=== PATIENT | female | born 1945 | race Caucasian/White ===

== ENCOUNTER → 2016-02-25 | Outpatient (CLI) | payer OTHER ==
[~2016-02-25] MED LIST: IOPAMIDOL (ISOVUE-300) 50 ML VIAL IV ONE
--- NOTE | 2016-02-25 18:55 | CT ---
Unenhanced and Contrast-Enhanced CT Imaging of the Abdomen and Pelvis with CT Urography Clinical History: 70-year-old female with hematuria and recurrent urinary tract infections. 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 ICD 10 Diagnostic Code: Are 31.9. Technique: Oral contrast was not administered. A multidetector unenhanced helical CT scan of the abdo men and pelvis was initially obtained. The patient reportedly has an IV contrast ALLERGY and had been premedicated with Benadryl and prednisone beforehand. She received 100 mL of IV Isovue-300 without c omplication, and a multidetector CT scan of the abdomen was acquired during the portal venous phase ( 2 minute delay), and then 10 minute delayed excretory phase "urography" imaging of the abdomen and pe lvis was obtained. Images are reformatted at 5.00, 2.50, and 1.25 mm increments, and multiplanar levi nstructions are reviewed on the workstation. The DFOV is 38.5-42.0 cm. A dose reduction protocol was used. Comparison Study: CT scan of the abdomen and pelvis, dated July 17, 2015. Findings: UNENHANCED CT SCAN OF THE ABDOMEN AND PELVIS: There are some mild dependent changes seen at the lung bases. There is some scarring seen inferolaterally in the lingula. There is no pleural or pericardial effusion. There are no hepatic, pancreatic, splenic, adrenal, renal, ureteral, or urinary bladder ca lculi. Some phleboliths are seen in the left hemipelvis, and are stable. There is atherosclerotic deirdre cification of the abdominal aorta. There is an old mild superior cortical endplate compression fractu re at L1 (which has developed since June 2015), with some subchondral sclerosis. There is advanced deg enerative disk disease at T10-T11, T11-T12, T12-L1, L2-L3, and L5-S1, and there is mild retrolisthesi s of L2 above L3. There are is an old healed fracture deformity associated with the left inferior isc hial pubic ramus. A small fat-containing periumbilical hernia is noted. MULTIPHASIC CONTRAST-ENHANCED CT SCAN OF THE ABDOMEN: The lesion previously biopsied in the lateral s egment of the left hepatic lobe was only visualized on the prior study during the arterial phase, and is not seen today again (because of the 'lateness' of contrast enhancement). There is some volume-av eraging of fat near the falciform ligament. The gallbladder is contracted. There is no bile duct dila tation. The pancreatic contour is normal. The spleen is normal in size. The splenic vein, superior me senteric vein, and the main portal vein are patent. The adrenal glands are normal. There is a tiny co rtical cyst in the medial upper pole of the right kidney. There are prominent bilateral extrarenal pe lves, with no calyceal dilatation or perinephric inflammation. The renal calyces homogeneously opacif y, with no filling defect. The lumbar portions of the ureters are normal in size and contour, and aga in there are no intraluminal filling defects. There is no retroperitoneal or mesenteric adenopathy. T here are scattered colonic diverticula involving the descending colon and the splenic flexure. A few diverticula are also seen in conjunction with the proximal descending colon. The CT appearance of sma ll bowel is grossly unremarkable. The abdominal aorta is normal in size and tapers normally with athe rosclerotic calcification. The IVC is normal in caliber. There is no ascites. CONTRAST-ENHANCED CT SCAN OF THE PELVIS: The ureters are not dilated, and are segmentally visualized. In the urinary bladder, there is a urine/contrast level with no filling defect or asymmetric wall th ickening. This should not preclude cystoscopy in this patient with hematuria if otherwise clinically indicated. The uterus is absent. There is no adnexal mass. There is no free fluid or adenopathy. Nume reshma sigmoid colon diverticula are seen. Impression: 1. There is no evidence of nephroureterolithiasis or obstructive uropathy. 2. There is a tiny cortical cyst in the upper pole of the right kidney, and there are normal-variant extrarenal pelves seen bilaterally; however there is no renal, ureteral, or urinary bladder neoplasm observed. 3. Status post hysterectomy. 4. Interim development of a mild superior cortical endplate compression fracture at L1, compared to t he previous study in June 2015.
== END ==
LOC: CIMAGING 15:05
PROVIDERS: ATTEND Urology
DX: N39.0 Urinary tract infection, site not specified (principal); R31.9 Hematuria, unspecified; N28.1 Cyst of kidney, acquired; K57.32 Diverticulitis of large intestine without perforation or abscess without bleeding; I70.0 Atherosclerosis of aorta; M51.34 Other intervertebral disc degeneration, thoracic region
CPT/HCPCS: 74178-PO; Q9967

== ENCOUNTER 2016-04-16 14:30 | Emergency (ER) | payer OTHER ==
[2016-04-16 14:53] VITALS: BP 119/57; PULSE 82; RESP 18; TEMP 97.9; O2SAT 96
--- NOTE | 2016-04-16 15:09 | UCPHY ---
H & P Time Seen by Provider: 04/16/16 15:05 Patient Type: Established HPI/ROS: This patient complains of a sore throat 8/10 intensity. She has been taking Bumpass that she had left over from an oral surgery with partial relief. She is unable to take ibuprofen as she is on Coumadin. Her symptoms started 4 days ago with combination of nasal congestion, sore throat, ear pressure and over the past few days occasional dry cough. She reports that she does not get fevers. Her most bothersome symptoms the sore throat. She reports that her pressure is mild in bilateral. ROS: No fevers. No other constitutional symptoms. HEENT: No drainage from her ears. She still tolerating good p.o. intake despite the sore throat. No change in her voice. Pulmonary: No pleuritic pain or shortness of breath. Cardiovascular: No lightheadedness or other complaints GI: No complaints 7 point ROS is otherwise negative. Past Medical/Surgical History: Pulmonary embolism Hypothyroidism Smoking Status: Never smoked Physical Exam: Pleasant 71-year-old female with normal vital signs Physical Exam General: No acute distress HEENT: Nose: Clear discharge bilaterally. No sinus tenderness to percussion. Ears: External canals and tympanic membranes are clear with no erythema or abnormal findings bilaterally except for left-sided clear effusion. Oropharynx: She has moderate posterior pharyngeal erythema. No exudates are noted. No dysphonia. No drooling or stridor. Eyes: Pupils equal and react to light. Extraocular motions are intact. Lungs: Clear to auscultation bilaterally with no rales, rhonchi or wheeze. No respiratory distress. Cardiac: Regular rate and rhythm with no murmur gallop or rub Skin: No rash or pallor. Neuro: Alert with no focal deficits noted. Initial differential diagnosis: Viral URI with viral pharyngitis and cough, strep pharyngitis, influenza Constitutional: Initial Vital Signs Temperature (C) 36.6 C 04/16/16 14:52 Heart Rate 82 04/16/16 14:52 Respiratory Rate 18 04/16/16 14:52 Blood Pressure 119/57 L 04/16/16 14:52 O2 Sat (%) 96 04/16/16 14:52 O2 Delivery Mode Room Air Allergies/Adverse Reactions: Iodinated Contrast Media - Oral and [IV Dye, Iodine Containing] Allergy ( Intermediate, Verified 07/25/15 17:13) Hives metronidazole [From Flagyl] Allergy (Intermediate, Verified 07/25/15 17:13) Metronidazole HCl [From Flagyl] Allergy (Intermediate, Verified 07/25/15 17:13) ciprofloxacin HCl [From Cipro] Allergy (Mild, Verified 07/25/15 17:13) FLU LIKE ILLNESS niacin [Niacin] Allergy (Mild, Verified 07/25/15 17:13) Rash Home Medications: Medication Instructions Recorded Rosuvastatin Calcium [Crestor 5mg] 5 mg PO HS 10/06/11 ALPRAZolam [Xanax 0.25 MG (*)] 0.25 mg PO DAILY PRN 08/07/14 Aspirin EC [Aspirin EC 81 mg (*)] 81 mg PO DAILY 08/07/14 Cholecalciferol Vit D3 [Vitamin D3 2,000 units PO DAILY 08/07/14 (*)] Denosumab [Prolia] 60 mg SQ Q180D 08/07/14 Escitalopram Oxalate [Lexapro] 20 mg PO DAILY 08/07/14 Levothyroxine [Synthroid 75 mcg 75 mcg PO Q2D@08/07/14 (*)] Levothyroxine [Synthroid 88 mcg 88 mcg PO Q2D@08/07/14 (*)] Multivitamins [Multivitamin (*)] 1 each PO DAILY 08/07/14 Warfarin Sodium [Coumadin 5MG (*)] 5 mg PO MOWETHSA@16 08/07/14 Warfarin Sodium [Coumadin 5MG (*)] 7.5 mg PO SUTUFR@16 08/07/14 Albuterol [Proventil Inhaler HFA 2 puffs IH DAILY PRN 11/08/14 (*)] Linaclotide [Linzess] 0 mcg PO DAILY 11/17/14 Diazepam 07/25/15 Fenofibric Acid 07/25/15 Hydrocodone/Acetaminophen [Bumpass 07/25/15 5/325 (RX)] Bumpass 5/325 (RX) 07/25/15 Fluticasone Nasal [Flonase Nasal 2 sprays NASAL DAILY #1 mdi 04/16/16 [place] (RX)] Hydrocodone/APAP 5/325 [Bumpass 1 - 2 tab PO Q4H PRN #12 tab 04/16/16 5/325 (*)] Medical Decision Making ED Course/Re-evaluation: Rapid flu is negative. Rapid strep is negative. Findings consistent with viral pharyngitis and serous otitis. - Data Points Laboratory Results: 04/16/16 04/16/16 04/16/16 Unknown 14:50 14:50 Influenza Typ A,B (DFA) NEGATIVE FOR FLU (NEGATIVE) Group A Strep Screen NEGATIVE (NEGATIVE) Group A Strep DNA Pending Departure - Departure Disposition: Home, Routine, Self-Care Clinical Impression: Viral pharyngitis Serous otitis media Qualifiers: Laterality: left Chronicity: acute Recurrence: not specified as recurrent Qualified Code(s): H65.02 - Acute serous otitis media, left ear Condition: Good Instructions: Pharyngitis (ED), Serous Otitis Media (ED) Additional Instructions: Diagnoses: 1. Viral pharyngitis 2. Serous otitis Her strep test and flu test are negative. Plan: Humidifier Flonase steroid nasal spray diminish the swelling in the ear Tylenol or Bumpass for pain as needed. No driving, or alcohol on Bumpass. Consider stool softener for using Bumpass to prevent constipation. Her symptoms should gradually improve over the next 3-7 days. Return for any significant worsening despite the treatment plan Referrals: Angela Bone MD [Primary Care Provider] - As per Instructions Prescriptions: Fluticasone Nasal [Flonase Nasal [place] (RX)] 2 sprays NASAL DAILY #1 mdi Hydrocodone/APAP 5/325 [Bumpass 5/325 (*)] 1 - 2 tab PO Q4H PRN #12 tab PRN Reason: Pain, Moderate - PQRS PQRS Measurement: 134: Depression screening and followup, PRIME MD-PHQ2 (12 years and older) Over the last 2 weeks, how often have you been bothered by any of the following problems? 1. Feeling down, depressed, or hopeless? 2. Little interest or pleasure in doing things? Patient answered no to both 1 and 2 130: Documentation of medications. Reviewed all patient medications, doses, route and frequency. 226: Do you smoke? [No.] 47: 65 and older: Advanced care planning. Patient designates surrogate decision maker as spouse 51: 18 years old and older with diagnosis of COPD, spirometry performance. NA 52: 18 years old and older with COPD and symptoms of COPD or FEV1<60% predicted prescribed a B Agonist. NA
== END 2016-04-16 15:44 | disposition home or self-care (01) ==
LOC: CED 14:30
DX: J02.9 Acute pharyngitis, unspecified (principal); H65.02 Acute serous otitis media, left ear; E03.9 Hypothyroidism, unspecified; Z86.711 Personal history of pulmonary embolism
CPT/HCPCS: 87400-PO; 87880-PO; 99214-PO; G0463-PO

== ENCOUNTER → 2016-09-04 | Outpatient (CLI) | payer OTHER | LOC: BRMIMAGING 11:22 | PROVIDERS: ATTEND Internal Medicine Gastroenterology | DX: R10.11 Right upper quadrant pain (principal) | CPT/HCPCS: 76705-PO ==

== ENCOUNTER → 2016-11-10 | Outpatient (CLI) | payer OTHER | LOC: BRMIMAGING 11:08 | PROVIDERS: ATTEND Internal Medicine | DX: Z12.31 Encounter for screening mammogram for malignant neoplasm of breast (principal); Z80.3 Family history of malignant neoplasm of breast | CPT/HCPCS: G0202 ==

== ENCOUNTER → 2017-11-11 | Outpatient (CLI) | payer OTHER | LOC: BRMIMAGING 10:43 | PROVIDERS: ATTEND Internal Medicine | DX: Z12.31 Encounter for screening mammogram for malignant neoplasm of breast (principal) ==